=== PATIENT | male | born 2000 | race African-American/Black ===

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

== ENCOUNTER 2022-12-15 20:03 | Emergency (ER) | payer OTHER ==
[2022-12-15 20:10] VITALS: BP 113/76; PULSE 80; RESP 16; TEMP 98.6; BMI 20.3
== END 2022-12-15 21:22 | disposition home or self-care (01) ==
LOC: FER 20:03
DX: M79.89 Other specified soft tissue disorders (principal)
CPT/HCPCS: 73610-TC-RT-FY; 99283-25

== ENCOUNTER 2023-01-14 20:28 | Emergency (ER) | payer OTHER ==
[2023-01-14 20:43] VITALS: BP 112/67; PULSE 81; RESP 16; TEMP 98.1; BMI 20.3
[2023-01-14] MEDS ORDERED: CLINDAMYCIN HCL 150 MG CAPSULE (FP) PO ONE (21:08)
[2023-01-14] MEDS ORDERED: CLINDAMYCIN HCL 150 MG CAPSULE (FP) ONE (21:11)
== END 2023-01-14 21:16 | disposition home or self-care (01) ==
LOC: FER 20:28
DX: K04.7 Periapical abscess without sinus (principal)
CPT/HCPCS: 99283-25

== ENCOUNTER 2024-04-08 13:10 | Emergency (ER) | payer OTHER ==
[2024-04-08 13:25] VITALS: BP 109/57; PULSE 83; RESP 15; TEMP 99.9; BMI 21.4
[2024-04-08] MEDS ORDERED: IBUPROFEN 400 MG TABLET (FP) PO ONE (13:39)
[2024-04-08] MEDS: IBUPROFEN 600 MG TABLET (FP) PO ONE (13:40)
== END 2024-04-08 14:13 | disposition home or self-care (01) ==
LOC: FER 13:10
DX: R50.9 Fever, unspecified (principal); R51.9 Headache, unspecified; B34.9 Viral infection, unspecified; R19.7 Diarrhea, unspecified; R63.0 Anorexia; Z20.822 Contact with and (suspected) exposure to COVID-19
CPT/HCPCS: 0241U-QW; 36415; 86308; 87651; 99283-25

== ENCOUNTER 2025-01-12 14:41 | Emergency (ER) | payer SELFPAY ==
[2025-01-12 14:47] VITALS: BP 130/73; PULSE 96; RESP 18; TEMP 98.4; BMI 22.9
== END 2025-01-12 16:10 | disposition home or self-care (01) ==
LOC: FER 14:41
DX: H92.01 Otalgia, right ear (principal); R11.0 Nausea; R68.83 Chills (without fever); L08.9 Local infection of the skin and subcutaneous tissue, unspecified; Z20.822 Contact with and (suspected) exposure to COVID-19
CPT/HCPCS: 0241U-QW; 99283-25

== ENCOUNTER 2025-08-20 11:05 | Emergency (ER) | payer OTHER ==
[2025-08-20 11:12] VITALS: BP 113/79; BMI 21.7
[2025-08-20] MEDS ORDERED: ACETAMINOPHEN 325 MG TABLET (FP) ONE (11:28)
[2025-08-20] MEDS: ACETAMINOPHEN 325 MG TABLET (FP) PO ONE (11:38)
[2025-08-20] MEDS ORDERED: IBUPROFEN 400 MG TABLET (FP) PO ONE (12:22)
[2025-08-20] MEDS: IBUPROFEN 400 MG TABLET (FP) PO ONE (12:24)
[2025-08-20 12:25] VITALS: PULSE 102; RESP 18
[2025-08-20 12:53] VITALS: TEMP 99.8
== END 2025-08-20 13:09 | disposition home or self-care (01) ==
LOC: FER 11:05
DX: J02.9 Acute pharyngitis, unspecified (principal); J06.9 Acute upper respiratory infection, unspecified; R50.9 Fever, unspecified; M79.10 Myalgia, unspecified site; R05.9 Cough, unspecified; R53.83 Other fatigue; R11.0 Nausea; R00.0 Tachycardia, unspecified; R09.89 Other specified symptoms and signs involving the circulatory and respiratory systems; J34.89 Other specified disorders of nose and nasal sinuses
CPT/HCPCS: 99283-25